=== PATIENT | male | born 1940 | race Caucasian/White ===

== ENCOUNTER 2020-12-09 15:38 | Emergency (ER) | payer MEDICARE ==
[2020-12-09 17:54] LABS: HEMOGLOBIN 10.9 gm/dl (14.0-17.5); RED BLOOD COUNT 3.88 M/UL (4.20-5.50)
[2020-12-09 18:27] LABS: BUN/CREATININE RATIO 25 (0-10)
== END 2020-12-10 00:57 | disposition home or self-care (01) ==
LOC: ER1 15:38
PROVIDERS: Physician Assistant
DX: S81.801A Unspecified open wound, right lower leg, initial encounter (principal); J44.9 Chronic obstructive pulmonary disease, unspecified; I11.0 Hypertensive heart disease with heart failure; I50.9 Heart failure, unspecified; I48.91 Unspecified atrial fibrillation; Z88.5 Allergy status to narcotic agent; Z79.899 Other long term (current) drug therapy; X58.XXXA Exposure to other specified factors, initial encounter
CPT/HCPCS: 71045; 80053; 82550; 82553; 83874; 83880; 84484; 85025; 99283